=== PATIENT | female | born 2000 | race Hispanic/Latino ===

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

== ENCOUNTER 2018-03-14 07:13 | Emergency (ER) | payer BC ==
[2018-03-14] MEDS ORDERED: Ondansetron ODT 4 MG TAB ONE (07:39)
[2018-03-14 08:13] LABS: #Eosinphils 0.2 thou/uL (0.0-0.7); #Lymphocytes 1.7 thou/uL (1.20-3.40); #Monocytes 0.7 thou/uL (0.11-0.59); #Neutrophils 5.8 thou/uL (1.40-6.50); %Basophils 0.2 % (0.0-1.0); %Eosinophils 2.3 % (0.0-10.0); %Lymphocytes 19.7 % (28.0-48.0); %Monocytes 8.8 % (0.0-4.0); Hemoglobin 12.9 g/dL (12.0-16.0); Mean Corpuscular HGB CONC 34.9 g/dL (32.0-36.0); Mean Corpuscular Hemoglobin 30.8 pg (25.0-35.0); Mean Corpuscular Volume 88.4 fL (78.0-98.0); Mean Platelet Volume 8.8 fL (7.4-10.4); Platelet Count 215 thou/uL (130-400); RBC Distribution Width 11.6 % (11.5-14.5); Red Blood Cell (RBC) Count 4.17 mill/uL (4.00-5.20); White Blood Cell (WBC) Count 8.3 thou/uL (4.8-10.8)
[2018-03-14 08:33] LABS: ALT (SGPT) 9 U/L (8-55); AST (SGOT) 13 U/L (5-30); Albumin 3.8 g/dL (3.5-5.0); Alkaline Phosphatase 58 U/L (40-150); Anion Gap 6 mmol/L (10-20); BUN (Urea Nitrogen) 11 mg/dL (8.4-21.0); Bilirubin, Total 0.4 mg/dL (0.2-1.2); Calc. Creatinine Clearance 0 mL/min (70-130); Calcium 8.7 mg/dL (7.8-10.44); Carbon Dioxide 23 mmol/L (22-29); Chloride 111 mmol/L (98-107); Estimated GFR-MDRD Greater than 90; Globulin 2.7 g/dL (2.4-3.5); Glucose 91 mg/dL (70-105); Lipase 19 U/L (8-78); Potassium 3.8 mmol/L (3.5-5.1); Protein, Total 6.5 g/dL (6.0-8.3); Sodium 136 mmol/L (136-145)
[2018-03-14 08:34] LABS: BHCG - Serum Negative (NEGATIVE); Pregs Control Background? CLEAR/WHITE (CLR/WHITE); Pregs Control Bar Appear? YES (CONTROL BAR)
[2018-03-14] MEDS ORDERED: Mag-Al 1200 mg/1200 mg/30 ML UDCUP ONE (08:42)
[2018-03-14] MEDS ORDERED: Lidocaine Viscous Sol 2% 15 ml UD Cup ONE (08:42)
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
[2018-03-14 10:11] LABS: Bacteria/HPF Rare-Few HPF (None Seen); Bilirubin Negative (Negative); Blood, Urine Negative (Negative); Clarity CLEAR (Clear); Glucose, Urine (Dipstick) Negative (Negative); Hyaline Casts/LPF 0-3 HYALINE CAST LPF (0-3 Hyaline); Leukocyte Small (Negative); Nitrite Negative (Negative); Pathc Cast-AUWi Flag 0.29 (0-2.49); Protein, Urine (Dipstick) Negative (Neg-Trace); Specific Gravity, Urine 1.017 (1.002-1.036); Urobilinogen 0.2 mg/dL (0.2-1.0)
== END 2018-03-14 10:51 | disposition home or self-care (01) ==
LOC: ERS 07:13
DX: N39.0 Urinary tract infection, site not specified (principal)
CPT/HCPCS: 36415; 74177; 80053; 81003; 81015; 83690; 84703; 85025; 87086; 96372; Q0162

== ENCOUNTER 2021-04-06 20:23 | Emergency (ER) | payer BC | END 2021-04-06 20:29 | disposition left against medical advice (07) | LOC: ERS 20:23 | DX: Z53.21 Procedure and treatment not carried out due to patient leaving prior to being seen by health care provider (principal) ==

== ENCOUNTER 2021-04-10 13:40 | Observation (INO) | payer BC ==
[2021-04-09 16:18] VITALS: BMI 30.4
[2021-04-10] MEDS ORDERED: Bupivacaine 0.25% HCL 30 ML VIAL ONE (14:29)
[2021-04-10] MEDS ORDERED: Lidocaine 1% w/Epinephrine 1:100K 20 ML VIAL ONE (14:29)
[2021-04-10] MEDS ORDERED: Levofloxacin 500 mg/D5W 100 ml Premix Bag ONE (14:52)
[2021-04-10 14:55] LABS: #Basophils 0.1 thou/uL (0.0-0.2); #Eosinphils 0.1 thou/uL (0.0-0.7); #Lymphocytes 2.1 thou/uL (1.20-3.40); #Monocytes 0.6 thou/uL (0.11-0.59); #Neutrophils 4.9 thou/uL (1.40-6.50); %Basophils 1.4 % (0.0-1.0); %Eosinophils 0.7 % (0.0-10.0); %Lymphocytes 27.1 % (21.0-51.0); %Monocytes 7.4 % (0.0-10.0); %Neutrophils 63.4 % (42.0-75.0); Hemoglobin 14.3 g/dL (12.0-16.0); Mean Corpuscular HGB CONC 35.1 g/dL (32.0-36.0); Mean Corpuscular Volume 91.1 fL (78.0-98.0); Platelet Count 278 thou/uL (130-400); RBC Distribution Width 11.3 % (11.5-14.5); Red Blood Cell (RBC) Count 4.47 mill/uL (4.20-5.40); White Blood Cell (WBC) Count 7.8 thou/uL (4.8-10.8)
[2021-04-10] MEDS ORDERED: Fentanyl 100 MCG/2 ML VIAL ONE ×3 (15:00→17:20)
[2021-04-10] MEDS ORDERED: Midazolam HCl 2 mg/2 ml Vial ONE (15:00)
[2021-04-10] MEDS ORDERED: Dexamethasone 20 MG/5 ML VIAL ONE (15:10)
[2021-04-10] MEDS ORDERED: PROPOFOL 200 MG/20 ML VIAL ONE (15:10)
[2021-04-10] MEDS ORDERED: Glycopyrrolate 0.2 MG/ML 5 ML SYRINGE ONE (15:10)
[2021-04-10] MEDS ORDERED: Rocuronium Bromide 10 MG/ML (10ML VIAL) ONE (15:10)
[2021-04-10] MEDS ORDERED: Ondansetron PF 4 MG/2 ML Vial ONE ×2 (15:10→16:46)
[2021-04-10] MEDS ORDERED: Ketorolac Tromethamine 30 MG/ML VIAL ONE (15:10)
[2021-04-10] MEDS ORDERED: Lidocaine 1% PF 5 ML VIAL ONE (15:10)
[2021-04-10 15:16] LABS: ALT (SGPT) 16 U/L (8-55); AST (SGOT) 16 U/L (5-34); Albumin 4.2 g/dL (3.5-5.0); Alkaline Phosphatase 64 U/L (40-110); Anion Gap 12 mmol/L (10-20); BUN (Urea Nitrogen) 12 mg/dL (7.0-18.7); Bilirubin, Direct 0.7 mg/dL (0.1-0.3); Bilirubin, Total 2.4 mg/dL (0.2-1.2); Calc. Creatinine Clearance 127 mL/min (70-130); Calcium 9.5 mg/dL (7.8-10.44); Carbon Dioxide 25 mmol/L (22-29); Chloride 109 mmol/L (98-107); Glucose 78 mg/dL (70-105); Protein, Total 7.5 g/dL (6.0-8.3); Sodium 142 mmol/L (136-145)
[2021-04-10 15:19] LABS: BHCG - Serum Negative (NEGATIVE); Pregs Control Background? CLEAR/WHITE (CLR/WHITE); Pregs Control Bar Appear? YES (CONTROL BAR)
[2021-04-10] MEDS ORDERED: Iothalamate Meglumine 60% 50 ML VIAL FS ONE (15:27)
[2021-04-10] MEDS ORDERED: SUGAMMADEX SODIUM 200 MG/2 ML VIAL ONE (15:54)
[2021-04-10] MEDS ORDERED: HYDROmorphone 2 MG/ML VIAL ONE (16:33)
[2021-04-10] MEDS ORDERED: Promethazine HCl 25 MG/ML VIAL ONE (16:46)
[2021-04-10] MEDS ORDERED: Mag-Al 1200 mg/1200 mg/30 ML UDCUP PO PRN (17:52)
[2021-04-10] MEDS ORDERED: Acetaminophen 325 MG TAB PO PRN (17:52)
[2021-04-10] MEDS ORDERED: Dextrose 5% in Water 1,000 ML IV PRN (17:52)
[2021-04-10] MEDS ORDERED: Promethazine HCl 25 MG/ML VIAL IM PRN (17:52)
[2021-04-10] MEDS ORDERED: hydrALAZINE 20 MG/ML VIAL SLOW IVP PRN (17:52)
[2021-04-10] MEDS ORDERED: Dextrose 50% Abboject 50 ML SYRINGE SLOW IVP PRN (17:52)
[2021-04-10] MEDS ORDERED: HYDROcodone/Acetaminophen 7.5/325 mg Tablet PO PRN ×2 (17:52)
[2021-04-10] MEDS ORDERED: Ondansetron PF 4 MG/2 ML Vial IVP PRN (17:52)
[2021-04-10] MEDS ORDERED: Calcium Carbonate 500 MG ChewTAB PO PRN (17:52)
[2021-04-10] MEDS: Lactated Ringer's 1,000 ML IV SCH (20:21)
[2021-04-10] MEDS: Famotidine/PF 20 mg/2ml Vial SLOW IVP SCH (20:22)
[2021-04-10] MEDS ORDERED: [UNRECOGNIZED DRUG - MIXTURE] PO SCH (21:00)
[2021-04-10] MEDS ORDERED: Famotidine 20 MG TAB PO SCH (21:00)
[2021-04-10] MEDS: Fentanyl 100 MCG/2 ML VIAL SLOW IVP PRN (21:19)
[2021-04-11] MEDS: Lactated Ringer's 1,000 ML IV SCH (03:56)
[2021-04-11] MEDS: Fentanyl 100 MCG/2 ML VIAL SLOW IVP PRN ×2 (06:16→08:40)
[2021-04-11 06:44] LABS: #Lymphocytes 1.2 thou/uL (1.20-3.40); #Monocytes 0.5 thou/uL (0.11-0.59); #Neutrophils 8.6 thou/uL (1.40-6.50); %Basophils 0.1 % (0.0-1.0); %Eosinophils 0.1 % (0.0-10.0); %Lymphocytes 11.3 % (21.0-51.0); %Monocytes 4.9 % (0.0-10.0); %Neutrophils 83.6 % (42.0-75.0); Hemoglobin 12.8 g/dL (12.0-16.0); Mean Corpuscular HGB CONC 35.5 g/dL (32.0-36.0); Mean Corpuscular Hemoglobin 32.5 pg (27.0-31.0); Mean Corpuscular Volume 91.6 fL (78.0-98.0); Mean Platelet Volume 9.2 fL (7.4-10.4); Platelet Count 239 thou/uL (130-400); RBC Distribution Width 11.2 % (11.5-14.5); Red Blood Cell (RBC) Count 3.93 mill/uL (4.20-5.40); White Blood Cell (WBC) Count 10.3 thou/uL (4.8-10.8)
[2021-04-11 07:03] LABS: ALT (SGPT) 26 U/L (8-55); AST (SGOT) 21 U/L (5-34); Albumin 3.4 g/dL (3.5-5.0); Alkaline Phosphatase 61 U/L (40-110); Anion Gap 14 mmol/L (10-20); BUN (Urea Nitrogen) 12 mg/dL (7.0-18.7); Bilirubin, Total 1.5 mg/dL (0.2-1.2); Calc. Creatinine Clearance 143 mL/min (70-130); Calcium 8.6 mg/dL (7.8-10.44); Carbon Dioxide 18 mmol/L (22-29); Chloride 109 mmol/L (98-107); Globulin 2.6 g/dL (2.4-3.5); Glucose 89 mg/dL (70-105); Lipase 6 U/L (8-78); Sodium 137 mmol/L (136-145)
[2021-04-11] MEDS: Famotidine/PF 20 mg/2ml Vial SLOW IVP SCH (08:40)
[2021-04-11] MEDS ORDERED: Fentanyl 100 MCG/2 ML VIAL ONE ×2 (11:33→13:02)
[2021-04-11] MEDS ORDERED: Midazolam HCl 2 mg/2 ml Vial ONE (11:33)
[2021-04-11] MEDS ORDERED: Lidocaine 2% Jelly 5 ML TUBE ONE (11:34)
[2021-04-11] MEDS ORDERED: Iothalamate Meglumine 60% 30 ML VIAL FS ONE (11:35)
[2021-04-11] MEDS ORDERED: Indomethacin 50 MG SUPP ONE (11:35)
[2021-04-11] MEDS ORDERED: Ondansetron PF 4 MG/2 ML Vial ONE (11:42)
[2021-04-11] MEDS ORDERED: Dexamethasone 20 MG/5 ML VIAL ONE (11:42)
[2021-04-11] MEDS ORDERED: Rocuronium Bromide 10 MG/ML (10ML VIAL) ONE (11:42)
[2021-04-11] MEDS ORDERED: PROPOFOL 200 MG/20 ML VIAL ONE (11:42)
[2021-04-11] MEDS ORDERED: Lidocaine 1% PF 5 ML VIAL ONE (11:42)
[2021-04-11] MEDS ORDERED: SUGAMMADEX SODIUM 200 MG/2 ML VIAL ONE (12:25)
[2021-04-11] MEDS ORDERED: HYDROmorphone 2 MG/ML VIAL SLOW IVP PRN (12:36)
[2021-04-11] MEDS ORDERED: Promethazine HCl 25 MG/ML VIAL IVPB PRN (12:36)
[2021-04-11] MEDS ORDERED: Promethazine HCl 25 MG/ML VIAL IM PRN (12:36)
[2021-04-11] MEDS ORDERED: Ondansetron HCl/PF 4 MG/2 ML Vial IVP PRN (12:36)
[2021-04-11] MEDS ORDERED: Cepastat Lozenges 1 LOZ PO PRN (14:45)
[2021-04-11 16:26] VITALS: BP 119/82; TEMP 97.7
== END 2021-04-11 18:59 | disposition home or self-care (01) ==
LOC: SDC 13:40 → SJJU 16:00
PROVIDERS: ADMIT Surgery; ATTEND Surgery
PROC: 0FT44ZZ Resection of Gallbladder, Percutaneous Endoscopic Approach (ICD-10-PCS; principal; 2021-04-10)
PROC: BF101ZZ Fluoroscopy of Bile Ducts using Low Osmolar Contrast (ICD-10-PCS; 2021-04-10)
PROC: 0F798ZZ Dilation of Common Bile Duct, Via Natural or Artificial Opening Endoscopic (ICD-10-PCS; 2021-04-11)
PROC: 0FC98ZZ Extirpation of Matter from Common Bile Duct, Via Natural or Artificial Opening Endoscopic (ICD-10-PCS; 2021-04-11)
DX: K80.46 Calculus of bile duct with acute and chronic cholecystitis without obstruction (principal); Z88.0 Allergy status to penicillin; Z91.018 Allergy to other foods
CPT/HCPCS: 36415; 47532; 74330; 80048; 80053; 80076; 83690; 84703; 85025; 88304; 96374; 96375; 96376; G0378; J1100; J1170; J1610; J1885; J1956; J2250; J2405; J2550; J2704; J3010; J7120; Q9961; S0020; S0028

== ENCOUNTER 2023-05-05 10:57 | Outpatient (CLI) | payer BC | END 2023-05-05 10:58 | disposition home or self-care (01) | LOC: BICMRI 10:57 | PROVIDERS: ATTEND Family Medicine | DX: R51.9 Headache, unspecified (principal); R55 Syncope and collapse | CPT/HCPCS: 70551 ==